=== PATIENT | male | born 1940 | race Caucasian/White ===

== ENCOUNTER 2020-02-15 06:23 | Inpatient (IN) | payer MEDICARE ==
[~2020-02-15] VITALS: Ht 172 cm; Wt 83.0 kg
[2020-02-15] MEDS ORDERED: CLONAZEPAM1 MG PO (18:52)
[2020-02-15] MEDS ORDERED: MYSOLINE TAB 5050 MG PO (18:53)
[2020-02-15] MEDS ORDERED: PRAVASTATIN SOD10 MG PO (18:55)
[2020-02-15] MEDS ORDERED: BENADRYL25 MG PO (19:11)
[2020-02-15] MEDS ORDERED: ALLERGY 4-HOUR4 MG PO (19:12)
[2020-02-15] MEDS ORDERED: DILTIAZEM ER300 M1 PO (19:12)
[2020-02-15] MEDS ORDERED: LOSARTAN-HCTZ1 EAC2 PO (19:13)
[2020-02-15] MEDS ORDERED: AMARYL1 MG PO (19:13)
[2020-02-15] MEDS ORDERED: GLUCOPHAGE500 MG PO (19:14)
[2020-02-15] MEDS ORDERED: POTASSIUM99 M1 PO (19:15)
[2020-02-15] MEDS ORDERED: SLOW-MAG71.5 MG PO (19:15)
[2020-02-15] MEDS ORDERED: ADVIL200 MG PO (19:18)
[2020-02-15 19:38] LABS: HEMOGLOBIN 14.8 gm/dl (14.0-17.5); RED BLOOD COUNT 5.1 M/UL (4.20-5.50); WHITE BLOOD COUNT 11.9 K/UL (4.5-11.0)
--- NOTE | 2020-02-16 03:45 | NUR ---
0345- CRITICAL CE RECIEVED, VALUES TRENDING DOWNWARD, PATIENT CURRENTLY HAS HEPARIN GTT INFUSING.
[2020-02-16 08:54] LABS: HEMOGLOBIN 14.9 gm/dl (14.0-17.5); RED BLOOD COUNT 5.06 M/UL (4.20-5.50); WHITE BLOOD COUNT 13.1 K/UL (4.5-11.0)
[2020-02-16 09:22] LABS: BUN/CREATININE RATIO 14 (0-10)
[2020-02-16 22:47] LABS: HEMOGLOBIN 13.9 gm/dl (14.0-17.5); RED BLOOD COUNT 4.72 M/UL (4.20-5.50); WHITE BLOOD COUNT 14.6 K/UL (4.5-11.0)
[2020-02-16 22:57] LABS: BUN/CREATININE RATIO 17 (0-10)
[2020-02-17 02:16] LABS: HEMOGLOBIN 13.8 gm/dl (14.0-17.5); RED BLOOD COUNT 4.74 M/UL (4.20-5.50); WHITE BLOOD COUNT 13.4 K/UL (4.5-11.0)
[2020-02-17 02:59] LABS: BUN/CREATININE RATIO 17 (0-10)
[2020-02-17] MEDS ORDERED: ASPIRIN81 MG PO (11:16)
[2020-02-17] MEDS ORDERED: MYSOLINE TAB 5050 MG PO (11:16)
[2020-02-17] MEDS ORDERED: IMDUR ER TAB 3030 MG PO (11:16)
[2020-02-17] MEDS ORDERED: NITROGLYCERIN0.4 MG SL (11:16)
[2020-02-17] MEDS ORDERED: ATORVASTATIN CA20 MG PO (11:16)
[2020-02-17] MEDS ORDERED: BRILINTA 90 MG90 MG PO (11:16)
== END 2020-02-17 12:39 | disposition home or self-care (01) | DRG 247 ==
LOC: M/S 17:19 → PROG CARE 02-16 16:05
PROVIDERS: Internal Medicine Interventional Cardiology; ADMIT Internal Medicine
PROC: B211YZZ Fluoroscopy of Multiple Coronary Arteries using Other Contrast (ICD-10-PCS; principal; 2020-02-16)
PROC: 027034Z Dilation of Coronary Artery, One Artery with Drug-eluting Intraluminal Device, Percutaneous Approach (ICD-10-PCS; principal; 2020-02-16)
PROC: 4A023N7 Measurement of Cardiac Sampling and Pressure, Left Heart, Percutaneous Approach (ICD-10-PCS; principal; 2020-02-16)
DX: I21.4 Non-ST elevation (NSTEMI) myocardial infarction (principal); D72.829 Elevated white blood cell count, unspecified; E11.9 Type 2 diabetes mellitus without complications; R41.9 Unspecified symptoms and signs involving cognitive functions and awareness; I10 Essential (primary) hypertension; Z85.3 Personal history of malignant neoplasm of breast; I25.110 Atherosclerotic heart disease of native coronary artery with unstable angina pectoris; E78.5 Hyperlipidemia, unspecified; Z82.49 Family history of ischemic heart disease and other diseases of the circulatory system; Z20.822 Contact with and (suspected) exposure to COVID-19; Z88.1 Allergy status to other antibiotic agents; F17.210 Nicotine dependence, cigarettes, uncomplicated
CPT/HCPCS: ECHO; 36415; 71045; 80048; 80061; 82550; 82553; 82962; 83036; 83735; 84484; 85027; 85347; 85610; 85730; 93306; 96374; 97161; 99152; 99153; C1725; C1769; C1874; C1887; C9600; G0378; G0379; J1170; J1644; J2250; J3010; J7030; J7040; Q9967